=== PATIENT | male | born 1950 | race Caucasian/White ===

== ENCOUNTER → 2019-06-24 | Day surgery (SDC) | payer MEDICARE ==
[2019-06-19 15:37] VITALS: BMI 33.0
[~2019-06-24] MED LIST: LACTATED RINGERS 1,000 ML IV ONE; LACTATED RINGERS 1,000 ML IV SCH; LIDOCAINE 1% 20 ML VIAL (10MG/ML) FOR IV START INTRADERMA PRN; LIDOCAINE 1% INJ 10MG/ML (20 ML MDV) ONE; PROPOFOL 10 MG/ML 20 ML VIAL IV ONE
--- NOTE | 2019-06-24 05:05 | P.GSHP ---
History of Present Illness H&P Date: 06/24/19 CHIEF COMPLAINT: Colon screen HISTORY OF PRESENT ILLNESS: The patient is a 69-year-old male who presents for colon screen. Lower endoscopy was offered for further evaluation and management. PAST MEDICAL HISTORY: Please see list. PAST SURGICAL HISTORY: Please see list. MEDICATIONS: Please see list. ALLERGIES: Please see list. SOCIAL HISTORY: No illicit drug use FAMILY HISTORY: No reports of Crohn disease or ulcerative colitis. REVIEW OF ORGAN SYSTEMS: CONSTITUTIONAL: No reports of fevers or chills. PHYSICAL EXAM: VITAL SIGNS: Stable GENERAL: Well-developed pleasant in no acute distress. HEENT: No scleral icterus. Extraocular movements grossly intact. Moist buccal mucosa. NECK: Supple without lymphadenopathy. CHEST: Unlabored respirations. Equal bilateral excursions. CARDIOVASCULAR: Regular rate and rhythm. Distal 2+ pulses. ABDOMEN: Soft, nontender, nondistended. MUSCULOSKELETAL: No clubbing, cyanosis, or edema. ASSESSMENT: 1. Colon screen. PLAN: 1. Recommend proceeding with a lower endoscopy Past Medical History Past Medical History: Hypertension, Thyroid Disorder Additional Past Medical History / Comment(s): hx. colon polyps, hand tremors, gout History of Any Multi-Drug Resistant Organisms: None Reported Past Surgical History: Orthopedic Surgery, Tonsillectomy Additional Past Surgical History / Comment(s): right knee surg., colonoscopy Past Anesthesia/Blood Transfusion Reactions: No Reported Reaction Smoking Status: Former smoker Medications and Allergies Home Medications Medication Instructions Recorded Confirmed Type Combo Bp Med PO DAILY 06/19/19 History Gout Med PO DAILY 06/19/19 History Magnesium(Unknown Dose) PO DAILY 06/19/19 History [place]-3 Fatty Acids/Fish Oil [Fish 1 each PO DAILY 06/19/19 06/19/19 History Oil 1,000 mg Softgel] Thryoid Med 1 tab PO DAILY 06/19/19 History Allergies Allergy/AdvReac Type Severity Reaction Status Date / Time No Known Allergies Allergy Verified 06/19/19 15:23
[2019-06-24 09:17] VITALS: TEMP 97.8
[2019-06-24 10:09] VITALS: RESP 17
[2019-06-24 10:18] VITALS: BP 125/84; PULSE 68
--- NOTE | 2019-06-24 10:35 | P.OP ---
Date of Procedure: 06/24/19 Description of Procedure: PREOPERATIVE DIAGNOSIS: Personal history of colon polyps. Colonoscopy screening, high risk POSTOPERATIVE DIAGNOSIS: Personal history of colon polyps. Colonoscopy screening, high risk Sigmoid diverticulosis Angiodysplasia ascending colon Descending colon polyp OPERATION: Colonoscopy to the ileocecal valve and appendiceal orifice. Colonoscopy with cold forceps biopsies. SURGEON: Cherrie Fink MD. ANESTHESIA: MAC. INDICATIONS: The patient is a 69-year-old male who presents for colonoscopy screening. Last colonoscopy over 10 years ago. Benefits and risks were described and informed consent was obtained. DESCRIPTION OF PROCEDURE: The patient had undergone Suprep. He had been brought into the operating room and laid in the left lateral decubitus position. After adequate intravenous sedation, the rectum was examined with 2% lidocaine jelly. No external hemorrhoids were encountered. The prostate was unremarkable. The rectal tone was within normal limits. No lesions were palpated in the rectal vault. An Olympus colonoscope was advanced until the ileocecal valve and appendiceal orifice were clearly viewed. The prep was excellent. A 4 mm angiodysplasia was found along the proximal ascending colon without bleeding. Moderate sigmoid scattered diverticulosis was encountered. Flat 3 mm polyp at the descending colon, 50 cm from the anal verge was cold forcep biopsy. No evidence of focal colitis was found. Retroflexion of the scope demonstrated grade 1 internal hemorrhoids without active bleeding or inflammation. The colon was desufflated. The patient had tolerated the procedure well. Withdrawal time was over 6 minutes. FINDINGS: Aronchick preparation quality scale 1 (1-5) No internal hemorrhoids No external hemorrhoids No arteriovenous malformations. Angiodysplasia 4 mm long proximal ascending colon without bleeding Moderate sigmoid diverticulosis Removal of 1 polyp: - Cold forceps biopsy at 50 cm from the anal verge, 3 mm polyp, descending colon No focal colitis. RECOMMENDATIONS: Repeat colonoscopy 5 years, 2023. Plan - Discharge Summary Discharge Rx Participant: No New Discharge Prescriptions: No Action Thryoid Med 1 tab PO DAILY [place]-3 Fatty Acids/Fish Oil [Fish Oil 1,000 mg Softgel] 1 each PO DAILY Magnesium(Unknown Dose) PO DAILY Gout Med PO DAILY Combo Bp Med PO DAILY Discharge Medication List Combo Bp Med PO DAILY 06/19/19 [History] Gout Med PO DAILY 06/19/19 [History] Magnesium(Unknown Dose) PO DAILY 06/19/19 [History] [place]-3 Fatty Acids/Fish Oil [Fish Oil 1,000 mg Softgel] 1 each PO DAILY 06/19/19 [History] Thryoid Med 1 tab PO DAILY 06/19/19 [History] Follow up Appointment(s)/Referral(s): Cherrie Fink MD [STAFF PHYSICIAN] - As Needed Patient Instructions/Handouts: *Surgery [facility] - (Anesthesia) Endoscopy Discharge Instructions, Colorectal Polyps (DC), Colonoscopy (DC), Diverticulosis Diet (GEN), Diverticulosis (GEN), Angiodysplasia of the Gastrointestinal Tract (DC) Activity/Diet/Wound Care/Special Instructions: Repeat colonoscopy 5 years, 2023 Discharge Disposition: HOME SELF-CARE
== END | disposition home or self-care (01) ==
LOC: ORWHC2ENDO 08:21
PROVIDERS: ATTEND Surgery Plastic and Reconstructive Surgery
DX: Z12.11 Encounter for screening for malignant neoplasm of colon (principal); D12.4 Benign neoplasm of descending colon; K55.20 Angiodysplasia of colon without hemorrhage; K57.30 Diverticulosis of large intestine without perforation or abscess without bleeding; Z86.010 Personal history of colon polyps; I10 Essential (primary) hypertension; E07.9 Disorder of thyroid, unspecified; R25.1 Tremor, unspecified; M10.9 Gout, unspecified; Z79.890 Hormone replacement therapy; Z79.899 Other long term (current) drug therapy
CPT/HCPCS: 88305; 45380; J2001; J2704